=== PATIENT | male | born 2000 | race Caucasian/White ===

== ENCOUNTER 2022-02-21 07:15 | Emergency (ER) | payer MEDICAID ==
[~2022-02-21] VITALS: Ht 177.8 cm; Wt 91.0 kg
[2022-02-21] MEDS ORDERED: ACETAMINOPHEN 325MG TABLET PO ONE (07:45)
[2022-02-21] MEDS ORDERED: OXYCODONE HCL/ACETAMINOPHEN 5/325MG TABLET PO ONE (08:15)
[2022-02-21] MEDS ORDERED: OXYC-100 MT (08:32)
[2022-02-21 09:10] VITALS: BP 133/67
== END 2022-02-21 09:38 | disposition home or self-care (01) ==
LOC: ER 07:15
DX: S90.211A Contusion of right great toe with damage to nail, initial encounter (principal); M79.671 Pain in right foot; R03.0 Elevated blood-pressure reading, without diagnosis of hypertension; W22.8XXA Striking against or struck by other objects, initial encounter; Y93.89 Activity, other specified; Y92.488 Other paved roadways as the place of occurrence of the external cause
CPT/HCPCS: 73620; 99283